=== PATIENT | male | born 1965 | race Caucasian/White ===

== ENCOUNTER 2022-01-06 12:30 | Emergency (ER) | payer MEDICARE, MEDICAID ==
[~2022-01-06] VITALS: Ht 175.3 cm; Wt 90.9 kg
[2022-01-06] MEDS ORDERED: CLIN-188 PO (15:27)
[2022-01-06 15:40] VITALS: BP 118/57
== END 2022-01-06 18:00 | disposition home or self-care (01) ==
LOC: ER 12:30 → EDBD 12:30 → ER 18:00
DX: L03.116 Cellulitis of left lower limb (principal); R33.9 Retention of urine, unspecified; Z88.0 Allergy status to penicillin
CPT/HCPCS: 93005